=== PATIENT | female | born 1985 | race Caucasian/White ===

== ENCOUNTER 2025-06-23 13:22 | Emergency (ER) | payer BC ==
[~2025-06-23] VITALS: Ht 160 cm; Wt 90.7 kg
[2025-06-23] MEDS ORDERED: ACETAMINOPHEN 325 MG TABLET ONE (15:17)
[2025-06-23] MEDS: ACETAMINOPHEN 325 MG TABLET PO ONE (15:25)
[2025-06-23 15:43] LABS: CALCIUM, SERUM 8.9 mg/dL (8.5-10.1); CREATININE 1.0 mg/dL (0.6-1.3); SODIUM SERUM 139 mmol/L (136-145); UREA NITROGEN, BLOOD 18 mg/dL (7-18)
[2025-06-23 15:49] LABS: ASPARTATE AMINOTRANSFERASE 20 U/L (15-37); TOTAL PROTEIN, SERUM 7.4 g/dL (6.4-8.2)
[2025-06-23 15:51] LABS: INR 1.03 (0.91-1.10)
[2025-06-23 16:00] LABS: PLATELET COUNT (AUTO) 267 K/uL (150-450); RED BLOOD CELL COUNT(AUTO) 4.52 MIL/uL (4.0-5.2); RED CELL DISTRIBUTION WIDTH 14.3 % (11.5-15.0); WHITE BLOOD COUNT (AUTO) 8.0 K/uL (4.3-11.0)
[2025-06-23] MEDS ORDERED: BENZONATATE 100 MG CAPSULE PO ONE (17:29)
[2025-06-23] MEDS: BENZONATATE 100 MG CAPSULE PO ONE (17:35)
[2025-06-23 17:59] VITALS: BP 112/70; TEMP 98.3; O2SAT 98
[2025-06-23] MEDS ORDERED: BENZ-13 PO (18:03)
[2025-06-23] MEDS ORDERED: ALBU8.5H8 INH (18:03)
[2025-06-23 18:33] LABS: EOSINOPHILS % (MANUAL) 11 % (0-4); LYMPHOCYTES % (MANUAL) 31 % (16-48); MONOCYTES % (MANUAL) 4 % (0-11.0); NEUTROPHILS % (MANUAL) 54 (42-76); PLATELET ESTIMATE ADEQUATE
== END 2025-06-23 18:07 | disposition home or self-care (01) ==
LOC: ER 13:22
DX: R05.9 Cough, unspecified (principal); R06.02 Shortness of breath; R07.89 Other chest pain; G40.909 Epilepsy, unspecified, not intractable, without status epilepticus; R10.20 Pelvic and perineal pain unspecified side
CPT/HCPCS: 36415; 71046; 80048-TC; 80076-TC; 84484-TC; 84702-TC; 85027-TC; 85730-TC

== ENCOUNTER 2025-07-10 15:43 | Emergency (ER) | payer BC ==
[~2025-07-10] VITALS: Ht 162.6 cm; Wt 68.0 kg
[~2025-07-10 15:43] MED LIST: ALBU8.5H8 INH; BENZ-13 PO
[2025-07-10 16:51] LABS: PLATELET COUNT (AUTO) 291 K/uL (150-450); RED BLOOD CELL COUNT(AUTO) 4.22 MIL/uL (4.0-5.2); RED CELL DISTRIBUTION WIDTH 14.2 % (11.5-15.0); WHITE BLOOD COUNT (AUTO) 7.3 K/uL (4.3-11.0)
[2025-07-10 17:04] LABS: CALCIUM, SERUM 8.8 mg/dL (8.5-10.1); CREATININE 0.9 mg/dL (0.6-1.3); SODIUM SERUM 135.0 mmol/L (136-145); UREA NITROGEN, BLOOD 18.0 mg/dL (7-18)
[2025-07-10 17:10] LABS: ALCOHOL, BLOOD 183.0 mg/dL (0-10); ASPARTATE AMINOTRANSFERASE 14.0 U/L (15-37); TOTAL PROTEIN, SERUM 7.7 g/dL (6.4-8.2)
[2025-07-10 18:00] VITALS: TEMP 98
[2025-07-10 20:10] VITALS: BP 125/85; O2SAT 99
== END 2025-07-10 20:05 | disposition home or self-care (01) ==
LOC: ER 15:50
DX: F10.20 Alcohol dependence, uncomplicated (principal); R56.9 Unspecified convulsions; I10 Essential (primary) hypertension; R10.20 Pelvic and perineal pain unspecified side
CPT/HCPCS: 36415; 80048-TC; 80076-TC; 84702-TC; 85025-TC; G0480